=== PATIENT | female | born 1950 | race Caucasian/White ===

== ENCOUNTER 2018-06-13 11:55 | Outpatient (CLI) | payer OTHER ==
[2015-09-04 05:33] VITALS: BMI 31.8
--- NOTE | 2018-06-13 13:40 | DI ---
Exam: Two views of the right hip. Comparison: None available. Reason for exam: Right hip pain FINDINGS: No acute fracture or malalignment. The femoral head articulates with the acetabulum. The imaged osseous structures appear diffusely demineralized.
== END 2018-06-13 11:56 | disposition home or self-care (01) ==
LOC: RAD 11:55
PROVIDERS: ATTEND Family Medicine
DX: M25.551 Pain in right hip (principal)

== ENCOUNTER 2019-04-15 07:13 | Emergency (ER) | payer OTHER ==
[2019-04-15 07:20] VITALS: BP 169/107; TEMP 99
[2019-04-15 07:31] VITALS: BMI 35.1
--- NOTE | 2019-04-15 08:09 | DI ---
EXAM: RIGHT ANKLE THREE VIEWS HISTORY: Pain after injury FINDINGS: No comparison. Postop changes include an intramedullary lupe of the distal fibula and two screws over the medial malleolus. There is mild deformity of the distal fibula consistent with old h ealed injury. No acute fracture or joint dislocation is seen. Soft tissue edema is noted. No joint effusion. Bony spurring of the posterior calcaneus. Bones appear demineralized. IMPRESSION: 1. No acute fracture or dislocation.
--- NOTE | 2019-04-15 08:10 | DI ---
EXAM: Right wrist three-view HISTORY: Fall COMPARISON: None FINDINGS: No fracture or dislocation. Mild scattered osteoarthritic change of the wrist with modera te to severe osteoarthritis first CMC joint. No focal soft tissue abnormality. IMPERSSION: 1. No fracture or dislocation. 2. Osteoarthritis
--- NOTE | 2019-04-15 08:12 | DI ---
EXAM: Right hand three-view HISTORY: Fall COMPARISON: None FINDINGS: No fracture or dislocation. Mild to moderate scattered osteophytic change throughout the hand with moderate to severe osteoarthritis first CMC joint. No focal soft tissue abnormality. IMPERSSION: 1. No fracture or dislocation. 2. Osteoarthritis
--- NOTE | 2019-04-15 08:13 | DI ---
EXAM: RIGHT FOOT, 3 VIEWS HISTORY: Pain after injury FINDINGS: Bones are demineralized. Distal leg bone findings as previously described on same day ank le series report. No displaced fracture or joint dislocation is seen. Moderate arthropathy of the i nterphalangeal joints. Bony spurring of the posterior calcaneus IMPRESSION: 1. Demineralization and arthropathy. No fracture or dislocation identified.
--- NOTE | 2019-04-15 08:33 | CT ---
EXAM: CT BRAIN HISTORY: Fall, hit head. Swelling. TECHNIQUE: CT brain without intravenous contrast. 5-mm axial sections with Reformations. COMPARISON: None FINDINGS: Brain is unremarkable without evidence of hemorrhage or large vessel distribution recent ischemic in farction. There is no suggestion of acute hydrocephalus or subdural fluid collection. No mass or ma ss effect. No skull fracture is seen. Mastoid processes are clear. Visualized paranasal sinuses are clear. Th ere is a scalp hematoma on the right measuring about 1.3 x 2 cm. IMPRESSION: 1. No acute intracranial process or injury. No skull fracture. 2. Right sided scalp hematoma.
--- NOTE | 2019-04-15 08:38 | ED.PDOC ---
General ED Provider: Dr. BETZAIDA LEW Chief Complaint: Fall Stated Complaint: fall Time Seen by Physician: 07:20 (seen with nurse present at all time (MAYITO)) Mode of Arrival: Walk-In Information Source: Patient Exam Limitations: No limitations Primary Care Provider: RUDDY THOMPSON Nursing and Triage Documentation Reviewed and Agree: Yes Does patient meet sepsis criteria?: No System Inflammatory Response Syndrome: Not Applicable Sepsis Protocol: For patient's 13 years and over: Temp is 96.8 and below OR 101 and greater Pulse >90 BPM Resp >20/minute Acutely Altered Mental Status Are patient's symptoms suggestive of a new infection, such as: -Pneumonia -Skin, Soft Tissue -Endocarditis -UTI -Bone, Joint Infection -Implantable Device -Acute Abdominal Infection -Wound Infection -Meningitis -Blood Stream Catheter Infection -Unknown Trauma/Injury Complaint Exam - Trauma Complaint/Exam Location of Pain or Injury: Reports: Head, Neck, RUE (HAND/ WRIST), RLE (ANKLE/ FOOT) Mechanism of Injury: Reports: Fall Symptoms Are: Still present Timing of Treatment: Delayed Initial Severity: Mild Current Severity: Mild Character: Reports: Aching Aggravating: Reports: None Alleviating: Reports: None Associated Signs and Symptoms: Denies: LOC, Confusion, Memory loss, Lethargy, Vomiting, Bleeding, Bruising, Swelling, Extremity disuse, Painful respiration, Hoarseness, Dysphagia, Hemoptysis, Significant blood loss : No Penetrating Injury Risk Factors: Reports: None Nexus Low Risk Criteria: No post-midline CS tender, No evidence of intoxicat., No Altered LOC, No focal neuro deficit, No distracting injuries Glascow Coma Scale (see protocol): 15 Trauma Findings: Absent: [place] eyes, Hemotympanum, Nasal deformity, Dental tenderness, Dental injury, Dental malocclusion, SubQ Air, Crepitus, Airway obstructed, Trachea displaced, Labored respirations, Muffled heart sounds, Weak pulses, Absent pulses, Abdominal distention, Pelvic tenderness Skin Findings: Present: Normal findings Differential Diagnoses: Fracture, Hematoma, Sprain, Strain Review of Systems - Review Of Systems Constitutional: Reports: No symptoms Eyes: Reports: No symptoms Ears, Nose, Mouth, Throat: Reports: No symptoms Respiratory: Reports: No symptoms Cardiac: Reports: No symptoms GI: Reports: No symptoms : Reports: No symptoms Musculoskeletal: Reports: Joint pain (HAND AND WRIST) Skin: Reports: No symptoms Neurological: Reports: Headache Endocrine: Reports: No symptoms Hematologic/Lymphatic: Reports: No symptoms All Other Systems: Reviewed and Negative Past Medical History - Past Medical History Previously Healthy: No Endocrine: Reports: None Cardiovascular: Reports: None Respiratory: Reports: None Hematological: Reports: None Gastrointestinal: Reports: None Genitourinary: Reports: None Neuro/Psych: Reports: None Musculoskeletal: Reports: None Cancer: Reports: None Last Menstrual Period: NA - Surgical History General Surgical History: Reports: Hysterectomy, Orthopedic (right ankle surgery ) - Family History Family History: Reports: None - Social History Smoking Status: Never smoker Hx Substance Use: No Alcohol Screening: None - Immunizations Tetanus Shot up to Date: No Physical Exam - Physical Exam Appearance: Well-appearing Ill-appearing: Mild Eyes: ASIYA, EOMI, Conjunctiva clear ENT: Ears normal, Nose normal, Oropharynx normal Respiratory: Breath sounds diminished, Crackles, Rhonchi Cardiovascular: RRR, Pulses normal, No rub, No murmur GI/: Soft, Nontender, No masses, Bowel sounds normal, No Organomegaly Musculoskeletal: Normal strength, ROM intact, No edema, No calf tenderness Skin: Warm, Dry, Normal color Neurological: Sensation intact, Motor intact, Reflexes intact, Cranial nerves intact, Alert, Oriented Psychiatric: Affect appropriate, Mood appropriate Critical Care Note - Critical Care Note Total Time (mins): 0 Course - Course Orders, Labs, Meds: Orders Category Date Time Status ANKLE, RIGHT MIN 3 VIEWS Stat RADS 04/15/19 07:[address] CERVICAL SPINE W/O CONTRAST Stat RADS 04/15/19 07:[address] HEAD W/O CONTRAST Stat RADS 04/15/19 07:31 Completed FOOT, RIGHT 3 VIEWS Stat RADS 04/15/19 07:33 Completed HAND, RIGHT 3 VIEWS Stat RADS 04/15/19 07:32 Completed WRIST, RIGHT 3 VIEWS Stat RADS 04/15/19 07:32 Completed Vital Signs: Temp Pulse Resp BP Pulse Ox 04/15/19 07:15 99.0 F 72 20 169/107 H 94 L Departure - Departure Time of Disposition: 08:49 Disposition: HOME SELF-CARE Discharge Problem: Hematoma of scalp Qualifiers: Encounter type: initial encounter Qualified Code(s): S00.03XA - Contusion of scalp, initial encounter Sprain of hand, right Qualifiers: Encounter type: initial encounter Qualified Code(s): S63.91XA - Sprain of unspecified part of right wrist and hand, initial encounter Right wrist sprain Qualifiers: Encounter type: initial encounter Qualified Code(s): S63.501A - Unspecified sprain of right wrist, initial encounter Instructions: Head Injury (ED), Hematoma (ED), Hand Sprain (ED), Foot Sprain ( ED) Condition: Good Pt referred to PMD for follow-up: Yes IPMP verified?: No Additional Instructions: Please call your Family Physician as soon as possible to schedule a follow-up appointment. Allergies/Adverse Reactions: Allergies caffeine Allergy (Intermediate, Verified 09/04/15 06:05) heart races Home Medications: Ambulatory Orders Clonazepam 0.5 mg PO BEDTIME 04/15/19 Metoprolol Tartrate 50 mg PO BID 04/15/19 Pravastatin Sodium [Pravachol] 40 mg PO BEDTIME 04/15/19 Triamterene/Hydrochlorothiazid [Triamterene-Hctz 37.5-25 mg Cp] 1 each PO EVERY OTHER DAY 04/15/19 Warfarin Sodium [Coumadin] 5 mg PO DAILY 04/15/19
--- NOTE | 2019-04-15 09:13 | CT ---
EXAM: CT cervical spine. HISTORY: Neck injury. TECHNIQUE: CT cervical spine without contrast. Detailed axial sections. Coronal and sagittal re-fo rmations. COMPARISON: None FINDINGS: No fracture is identified. Vertebral body heights are maintained. There is no spondylolisthesis. F acet joints are covered. Lateral masses of C1 and C2 are normally aligned and the odontoid process is intact. Diffuse mild to moderate degenerative changes of the spine most apparent at C5/C6 where t here is mild central canal stenosis and bilateral neural foraminal narrowing. No traumatic central c anal stenosis or paraspinal hematoma. IMPRESSION: 1. No acute fracture or subluxation.
== END 2019-04-15 09:12 | disposition home or self-care (01) ==
LOC: ED 07:13
DX: S00.03XA Contusion of scalp, initial encounter (principal); S63.91XA Sprain of unspecified part of right wrist and hand, initial encounter; W01.0XXA Fall on same level from slipping, tripping and stumbling without subsequent striking against object, initial encounter
CPT/HCPCS: 99283

== ENCOUNTER 2019-04-17 02:54 | Emergency (ER) ==
[2019-04-17 03:02] VITALS: TEMP 97.2
[2019-04-17 03:14] VITALS: BP 176/110; BMI 35.0
[2019-04-17] MEDS ORDERED: NITROSTAT SL ONE (03:16)
[2019-04-17] MEDS ORDERED: SODIUM CHLORIDE 1,000 ML IV STA (03:21)
[2019-04-17] MEDS ORDERED: ZOFRAN 4 MG/2 ML IVP STA (03:21)
[2019-04-17] MEDS ORDERED: MORPHINE 4 MG/ML SYRINGE IVP STA (03:21)
[2019-04-17] MEDS ORDERED: NITROSTAT SL STA (03:23)
--- NOTE | 2019-04-17 03:26 | ED.PDOC ---
General ED Provider: Dr. YUE HUTCHISON Chief Complaint: Chest Pain Stated Complaint: woke up 45 min ago with chest pain on the substernal area radiating to the Jaw and left arm. Has a history of Atrial fibrillation on anticoagulation. Time Seen by Physician: 03:10 Mode of Arrival: Walk-In Information Source: Patient, Family Exam Limitations: No limitations Primary Care Provider: RUDDY THOMPSON Nursing and Triage Documentation Reviewed and Agree: Yes Does patient meet sepsis criteria?: No System Inflammatory Response Syndrome: Not Applicable Sepsis Protocol: For patient's 13 years and over: Temp is 96.8 and below OR 101 and greater Pulse >90 BPM Resp >20/minute Acutely Altered Mental Status Are patient's symptoms suggestive of a new infection, such as: -Pneumonia -Skin, Soft Tissue -Endocarditis -UTI -Bone, Joint Infection -Implantable Device -Acute Abdominal Infection -Wound Infection -Meningitis -Blood Stream Catheter Infection -Unknown Cardiovascular Complaint Exam - Chest Pain Complaint/Exam Onset: Sudden Duration: 45 min Symptoms Are: Still present Timing: Constant Initial Severity: Severe Current Severity: Severe Location: Reports: Midsternal Pain Radiates: Reports: Left arm, Jaw Character: Reports: Heaviness, Pressure Aggravating: Reports: None Alleviating: Reports: None Associated Signs and Symptoms: Denies: Diaphoresis, Nausea, Vomiting, Fever, Palpitations, Cough, Hemoptysis, Back pain, Abdominal pain, Dizziness, Short of air, Calf pain, Calf swelling AMI/ACS Risk Factors: Reports: Hypertension, Dyslipidemia. Denies: Diabetes, Smoking TAD Risk Factors: Reports: Hypertension. Denies: Smoking, CHF, Pulmonary Embolism Risk Factors: Reports: None Prior Care for this Complaint: No Recent Stress Test: No Recent Echo/LV Function: No JVD Present: No Subcutaneous Emphysema Present: No If Risk Factors for AMI/ACS Consider: EKG, Cardiac Enzymes, Serial Studies, Oxygen, Aspirin Differential Diagnoses: Acute MS, Unstable Angina Review of Systems - Review Of Systems Constitutional: Reports: Loss of appetite Respiratory: Reports: No symptoms Cardiac: Reports: Chest pain GI: Reports: No symptoms : Reports: No symptoms Musculoskeletal: Reports: No symptoms Skin: Reports: No symptoms Neurological: Reports: Anxiety Endocrine: Reports: No symptoms Hematologic/Lymphatic: Reports: No symptoms All Other Systems: Reviewed and Negative Past Medical History - Past Medical History Previously Healthy: No Endocrine: Reports: None, Dyslipidemia Cardiovascular: Reports: Hypertension, A-Fib Respiratory: Reports: None Hematological: Reports: None Gastrointestinal: Reports: None Genitourinary: Reports: None Neuro/Psych: Reports: None Musculoskeletal: Reports: None Cancer: Reports: None Last Menstrual Period: hyst 40 yrs ago - Surgical History General Surgical History: Reports: Hysterectomy, Orthopedic (right ankle surgery ) - Family History Family History: Reports: None - Social History Smoking Status: Never smoker Hx Substance Use: No Alcohol Screening: None - Immunizations Tetanus Shot up to Date: Yes Physical Exam - Physical Exam Appearance: Ill-appearing Ill-appearing: Moderate Pain Distress: Severe Neck: Supple Respiratory: Airway patent, Breath sounds clear, Breath sounds equal, Respirations nonlabored Cardiovascular: RRR, Pulses normal, No rub, No murmur Musculoskeletal: Normal strength, ROM intact, No edema, No calf tenderness Skin: Warm Neurological: Alert, Oriented Psychiatric: Anxious Interpretation - Radiology Interpretation Radiology Interpretation By: ED Physician Radiology Results: Negative Exam Interpreted: Portable CXR - Validation Leader Time of Validation Leader Interpretation: 03:29 Rate: Normal Rhythm: Other (Atrial Fibrillation) Ectopy: None - EKG Interpretation Time of EKG #1: 03:08 Rate: Normal Rhythm: Other (Atrial Fib) Ectopy: None Hart: NL ST Segment: Other (3mm elevation in 2,3, AVF) Interpretation: Acute inferior MS Re-Evaluation - Re-Evaluation Time of Re-Evaluation: 03:34 Status: Improved (only slightly ) Vital Signs Stable: Yes (137/92, 93 % on 2 L, P 86, Resp 18 ) Pain Level: 7/10 Physician Notification - Case Discussed Physician Notified: Dr Ramirez Time of Notification: 03:25 (Acute MS ) Critical Care Note - Critical Care Note Total Time (mins): 40 Course - Course Hematology/Chemistry: 04/17/19 03:25 04/17/19 03:25 Orders, Labs, Meds: Lab Review 04/17/19 04/17/19 04/17/19 03:25 03:25 03:25 WBC 8.47 RBC 4.20 Hgb 13.1 Hct 40.3 MCV 96.0 MCH 31.2 H MCHC 32.5 RDW Coeff of Helen 13.6 Plt Count 257 Immature Gran % (Auto) 0.6 Neut % (Auto) 59.5 Lymph % (Auto) 28.8 Thomas % (Auto) 6.8 Eos % (Auto) 3.5 Baso % (Auto) 0.8 Immature Gran # (Auto) 0.1 Neut # (Auto) 5.0 Lymph # (Auto) 2.4 Thomas # (Auto) 0.6 Eos # (Auto) 0.3 Baso # (Auto) 0.1 PT 29.7 H INR 3.07 Sodium 142.4 Potassium 3.00 L Chloride 104.9 Carbon Dioxide 28.4 Anion Gap 12.10 BUN 26.9 H Creatinine 0.71 Estimated GFR (MDRD) 82.00 BUN/Creatinine Ratio 37.88 Glucose 102.4 Calcium 9.32 Total Bilirubin 0.80 AST 24.4 ALT 18.2 Alkaline Phosphatase 84.0 Total Creatine Kinase 69.7 Troponin I 0.056 Total Protein 7.20 Albumin 4.31 Globulin 2.89 Albumin/Globulin Ratio 1.49 Orders Category Date Time Status EKG-(ED ONLY) Stat CARDIO 04/17/19 03:03 Ordered EKG-(ED ONLY) Stat CARDIO 04/17/19 03:21 Ordered ED APPLY O2 .ONCE EMERGENCY 04/17/19 03:21 Active ED IV/MEDIPORT/POWERPORT .ONCE EMERGENCY 04/17/19 03:21 Active CBC W/ AUTO DIFF Stat LAB 04/17/19 03:25 Completed COMPREHENSIVE METABOLIC PANEL Stat LAB 04/17/19 03:25 Completed CREATINE KINASE Stat LAB 04/17/19 03:25 Completed PT WITH INR Stat LAB 04/17/19 03:25 Completed TROPONIN I Stat LAB 04/17/19 03:25 Completed 0.9 % Sodium Chloride [Saline Flush] MEDS 04/17/19 03:21 Discontinued 1 syr IVF PRN PRN Hydromorphone HCl [Dilaudid 1 mg/ml Syringe] MEDS 04/17/19 03:36 Discontinued 1 mg .ROUTE .STK-MED ONE Hydromorphone HCl [Dilaudid 1 mg/ml Syringe] MEDS 04/17/19 03:34 Discontinued 1 mg IVP ONCE STA Morphine Sulfate [Morphine 4 mg/ml Syringe] MEDS 04/17/19 03:21 Discontinued 4 mg IVP ONCE STA Nitroglycerin [Nitrostat] MEDS 04/17/19 03:16 Discontinued 0.4 mg SL .STK-MED ONE Ondansetron HCl/Pf [Zofran 4 mg/2 ml] MEDS 04/17/19 03:21 Discontinued 4 mg IVP ONCE STA Sodium Chloride 0.9% [Sodium Chloride] 1,000 ml MEDS 04/17/19 03:21 Discontinued IV 65 mls/hr CHEST, 1V AP ONLY Stat RADS 04/17/19 03:21 Completed Medications Discontinued Medications Generic Name Dose Route Start Last Admin Trade Name Freq PRN Reason Stop Dose Admin Hydromorphone HCl 1 mg 04/17/19 03:34 04/17/19 03:41 Dilaudid 1 Mg/Ml Syringe IVP 04/17/19 03:35 1 mg ONCE STA Administration Sodium Chloride 1,000 mls @ 65 mls/hr 04/17/19 03:21 04/17/19 03:33 Sodium Chloride IV 04/17/19 18:44 65 mls/hr .[id number] STA Administration Morphine Sulfate 4 mg 04/17/19 03:21 04/17/19 03:33 Morphine 4 Mg/Ml Syringe IVP 04/17/19 03:22 4 mg ONCE STA Administration Ondansetron HCl 4 mg 04/17/19 03:21 04/17/19 03:34 Zofran 4 Mg/2 Ml IVP 04/17/19 03:22 4 mg ONCE STA Administration Sodium Chloride 1 syr 04/17/19 03:21 Saline Flush IVF PRN PRN To flush IV Vital Signs: Temp Pulse Resp BP Pulse Ox 04/17/19 02:55 97.2 F L 91 H 20 176/110 H 97 MARCELLA Risk Score Age >/= 65: Yes >/= 3 CAD Risk Factors: Yes Known CAD (Stenosis >/= 50%): No ASA Use in Past 7 Days: Yes Severe Angina (>/= 2 episodes in 24 hours): No EKG ST Changes >/= 0.5mm: Yes MARCELLA Total Score: 4 MARCELLA Risk Score: Risk Score Odds of by 30D 0 0.1 (0.1-0.2) 1 0.3 (0.2-0.3) 2 0.4 (0.3-0.5) 3 0.7 (0.6-0.9) 4 1.2 (1.0-1.5) 5 2.2 (1.9-2.6) 6 3.0 (2.5-3.6) 7 4.8 (3.8-6.1) Departure - Departure Time of Disposition: 03:45 Disposition: TSF SHORT-TRM HOSP Discharge Problem: ST elevation myocardial infarction (STEMI) of inferior wall, initial episode of care Condition: Critical Pt referred to PMD for follow-up: No IPMP verified?: No Allergies/Adverse Reactions: Allergies caffeine Allergy (Intermediate, Verified 09/04/15 06:05) heart races Home Medications: Ambulatory Orders Clonazepam 0.5 mg PO BEDTIME 04/15/19 Metoprolol Tartrate 50 mg PO BID 04/15/19 Pravastatin Sodium [Pravachol] 40 mg PO BEDTIME 04/15/19 Triamterene/Hydrochlorothiazid [Triamterene-Hctz 37.5-25 mg Cp] 1 each PO EVERY OTHER DAY 04/15/19 Warfarin Sodium [Coumadin] 5 mg PO DAILY 04/15/19
[2019-04-17] MEDS ORDERED: NITROSTAT SL PRN (03:29)
[2019-04-17] MEDS ORDERED: DILAUDID 1 MG/ML SYRINGE IVP STA (03:34)
[2019-04-17] MEDS ORDERED: DILAUDID 1 MG/ML SYRINGE ONE (03:36)
--- NOTE | 2019-04-17 03:48 | DI ---
EXAM: Chest, single view, 04/17/2019 HISTORY: Chest pain COMPARISON: None. FINDINGS / IMPRESSION: Cardiomediastinal contours appear at the upper limits of normal. Basilar int erstitial prominence may relate to atelectasis. There is no focal pulmonary consolidation. No defin itive pleural effusion. No evidence of pneumothorax.
== END 2019-04-17 03:45 | disposition short-term general hospital (02) ==
LOC: ED 02:54
DX: I21.19 ST elevation (STEMI) myocardial infarction involving other coronary artery of inferior wall (principal); I48.91 Unspecified atrial fibrillation; I10 Essential (primary) hypertension; E78.5 Hyperlipidemia, unspecified; Z79.01 Long term (current) use of anticoagulants; Z79.899 Other long term (current) drug therapy
CPT/HCPCS: 36415; 80053; 82550; 84484; 85025; 85610; 93005; 93010; 96361; 96374; 96375; 99285

== ENCOUNTER 2019-04-17 03:42 | Outpatient (CLI) | payer OTHER ==
[2019-04-17 03:14] VITALS: BMI 35.0
== END 2019-04-17 03:59 | disposition critical access hospital (66) ==
LOC: AMBL 03:42
PROVIDERS: ATTEND Internal Medicine Geriatric Medicine
DX: I21.19 ST elevation (STEMI) myocardial infarction involving other coronary artery of inferior wall (principal)

== ENCOUNTER 2019-07-02 11:00 | Outpatient (RCR) | payer OTHER ==
[2019-04-29 10:46] VITALS: BMI 31.9
--- NOTE | 2019-06-19 15:26 | RS.OPPTDN ---
Subjective Date of Note: 06/19/19 Visit #: 7 Number of visits approved by Insurance: 8-10 Date of Evaluation: 06/05/19 Payer Source: MEDICARE Treatment Diagnosis: Right hip, knee, and ankle pain, History of fall Current Subjective/complaints:: Patient says she is able to take a longer step with walking now and she reports reduced pain to the R hip, knee, and ankle. - Heat/Cryotherapy Treatment: Hot Pack (over the R hip and knee and around the ankle in sidelying x 20 mins) Interventions - Exercise/Activities/Manual Therapy Exercises/Activities: Patient assisted with stretches to the R LE including SKTC , Hamstring, Piriformis, lower trunk rotation, figure 4 x 3 ea. AAROM of right knee flex and extension, full range. She performs: hooklying ball squeezes, hooklying hip abd with green tband, SAQ increased to 2#, QS, SLR (3 sets of 10 reps), DF/PF/IV with green tband, isometrics into eversion, ham curls with green tband. All 2 x 10 reps. LAQ and hip flexion with 1 1/2# for R LE. Standing: hip abd and ham curls with 2# x 10. No weight for active R hip march , heel raises all x 10 reps. Stationary bike forward x 3 mins, reverse x 2. Total minutes of Exercise: 35 Manual Therapy: NA HOME EXERCISE PROGRAM: mini-squat (very limited range) in standing. Pillow squeezes, QS, SLR - Charges Timed Code Treatment Minutes: 35 Total Treatment Time: 55 Procedures billed for this date of service:: hp, ex2 Assessment: Patient presents with longer R LE stride, increased gait speed since last week maintaining CHIEF ARCHITECT speed instead of CHIEF ARCHITECT slowing pace for pt. She admits improved R hip and groin pain allowing her full R knee ROM actively and ability to lift her leg up into her SUV and on our plinth tables with no difficulty. She also admits no trouble with stepping up/down stairs or curb. Patient Education: Body/Joint mechanics, Home Exercise Program Patient demonstrates compliance with HEP?: Yes Short Term Goals Goal #1: Patient independent with HEP. Goal to be met by: 06/19/19 Progress towards Goal:: Progressing Goal #2: Right hip AROM WFL's with minimal pain. Goal to be met by: 06/19/19 Progress towards Goal:: Met Goal #3: Right knee active flexion to 115 degrees with minimal pain. Goal to be met by: 06/19/19 Progress towards Goal:: Met Goal #4: Right ankle DF to 10 degrees. Goal to be met by: 06/19/19 Progress towards Goal:: Progressing Comments:: 5 degrees Plumbing Contractor Goals Goal #1: Pt to amb. community distances with minimal pain or gait deviation. Goal to be met by: 07/20/19 Progress towards goal: Progressing Goal #2: Patient able to sleep without interruption from right LE pain. Goal to be met by: 07/20/19 Progress towards goal: Progressing Comments: admits only slight interruption and is less frequent Goal #3: Score on LE functional scale improved to 46/80. Goal to be met by: 07/20/19 Comments: Assess next week Goal #4: Pt to ascend/descend 3 steps with minimal difficulty. Goal to be met by: 07/20/19 Progress towards goal: Progressing Comments: Admits no difficulty Plan Dates of Plumbing Contractor Goals: 07/20/19 Expiration date of current Insurance Approval:: 07/20/19 PLAN: Continue TIW for assisted stretching and strengthening to the R LE
--- NOTE | 2019-06-23 15:53 | RS.OPPTDN ---
Subjective Date of Note: 06/23/19 Visit #: 8 Number of visits approved by Insurance: Reassess at 10 Date of Evaluation: 06/05/19 Payer Source: MEDICARE Treatment Diagnosis: Right hip, knee, and ankle pain, History of fall Current Subjective/complaints:: Patient says that she is now able to sleep in her bed instead of her recliner. Reports she is also able to use the steps from her garage to home without holding onto the railing. Prior to this last week she was using both hands on the rail. She says her pain is very minimal to the hip, but no longer has the "deep joint ache." Says her R leg is stronger allowing her to walk faster and with a feeling of better support. - Heat/Cryotherapy Treatment: Hot Pack (15 mins to the low back, R hip and R ankle in sidelying) Interventions - Exercise/Activities/Manual Therapy Exercises/Activities: Patient assisted with progressive stretches to the R LE including SKTC, Hamstring, Piriformis, lower trunk rotation, figure 4 x 3 ea. Stretching to R heel cords. She performs: hooklying ball squeezes, hooklying hip abd with green tband, SAQ increased to 2 1/2#, QS, SLR (3 sets of 10 reps), Bridging, green tband for single R hip flexion with knee bent 2x10. DF/PF/IV/ EV with green tband, ham curls with green tband. All 2 x 10 reps. LAQ and hip flexion with 2 1/2# for R LE. Standing: hip abd and ham curls with 2# x 10. No weight for active R hip march, heel raises all x 10 reps. Stationary bike forward x 5 mins, reverse x 2. Total minutes of Exercise: 35 Manual Therapy: NA HOME EXERCISE PROGRAM: mini-squat (very limited range) in standing. Pillow squeezes, QS, SLR - Charges Timed Code Treatment Minutes: 35 Total Treatment Time: 50 Procedures billed for this date of service:: mara, ex2 Assessment: Patient has progressed well with sleep improvement and now returning to her bed, no longer requiring use of handrail while ascending/ descending steps to/from garage, and improved stability with ambulation allowing her resume her normal speed of pace. She demo full R knee flexion and improved HS and heel cord flexibility. Patient Education: Body/Joint mechanics, Education of Plan of Care Patient demonstrates compliance with HEP?: Yes Short Term Goals Goal #1: Patient independent with HEP. Goal to be met by: 06/19/19 Progress towards Goal:: Met Goal #2: Right hip AROM WFL's with minimal pain. Goal to be met by: 06/19/19 Progress towards Goal:: Met Goal #3: Right knee active flexion to 115 degrees with minimal pain. Goal to be met by: 06/19/19 Progress towards Goal:: Met Goal #4: Right ankle DF to 10 degrees. Goal to be met by: 06/19/19 Progress towards Goal:: Progressing Comments:: 8 degrees measured today Nursing Home Goals Goal #1: Pt to amb. community distances with minimal pain or gait deviation. Goal to be met by: 07/20/19 Progress towards goal: Progressing Goal #2: Patient able to sleep without interruption from right LE pain. Goal to be met by: 07/20/19 Progress towards goal: Progressing Goal #3: Score on LE functional scale improved to 46/80. Goal to be met by: 07/20/19 Comments: Assess this week Goal #4: Pt to ascend/descend 3 steps with minimal difficulty. Goal to be met by: 07/20/19 Progress towards goal: Progressing Plan Dates of Nursing Home Goals: 07/20/19 Expiration date of current Insurance Approval:: 07/20/19 PLAN: Patient to continue x 2 more sessions and reassess this week.
--- NOTE | 2019-06-24 14:45 | RS.OPPTDN ---
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 She will be returning to her MD today for follow up. - Heat/Cryotherapy Treatment: Hot Pack (over the R low back/hip/ankle in sidelying x 15 mins) Interventions - Exercise/Activities/Manual Therapy Exercises/Activities: Patient assisted with progressive stretches to the R LE including SKTC, Hamstring, Piriformis, lower trunk rotation, figure 4 x 3 ea. Stretching to R heel cords. She performs: hooklying ball squeezes, hooklying hip abd with green tband, SAQ 2 1/2#, QS, SLR (3 sets of 10 reps), Bridging, green tband for single R hip flexion with knee bent 2x10. DF/PF/IV/EV with green tband, ham curls with green tband. All 3 x 10 reps. LAQ and hip flexion with 2 1/2# for R LE. Total minutes of Exercise: 29 Manual Therapy: NA HOME EXERCISE PROGRAM: mini-squat (very limited range) in standing. Pillow squeezes, QS, SLR - Charges Timed Code Treatment Minutes: 29 Total Treatment Time: 44 Procedures billed for this date of service:: hp, ex2 Assessment: Patient amb with increased WBing on the R LE and continues with consistent pace. Good HS and piriformis extensibility with no longer experiencing R hip soreness during stretches and able to allow full range with R SKTC. Patient Education: Body/Joint mechanics, Home Exercise Program Patient demonstrates compliance with HEP?: Yes Short Term Goals Goal #1: Patient independent with HEP. Goal to be met by: 06/19/19 Progress towards Goal:: Met Goal #2: Right hip AROM WFL's with minimal pain. Goal to be met by: 06/19/19 Progress towards Goal:: Met Goal #3: Right knee active flexion to 115 degrees with minimal pain. Goal to be met by: 06/19/19 Progress towards Goal:: Met Goal #4: Right ankle DF to 10 degrees. Goal to be met by: 06/19/19 Progress towards Goal:: Progressing Comments:: 8 degrees General Inspector Goals Goal #1: Pt to amb. community distances with minimal pain or gait deviation. Goal to be met by: 07/20/19 Progress towards goal: Progressing Goal #2: Patient able to sleep without interruption from right LE pain. Goal to be met by: 07/20/19 Progress towards goal: Progressing Goal #3: Score on LE functional scale improved to 46/80. Goal to be met by: 07/20/19 Comments: Assess next session Goal #4: Pt to ascend/descend 3 steps with minimal difficulty. Goal to be met by: 07/20/19 Progress towards goal: Progressing Plan Dates of [facility] Goals: 07/20/19 Expiration date of current Insurance Approval:: 07/20/19 PLAN: Patient continue once more this week. Complete reassessment and D/c if goals are met.
--- NOTE | 2019-06-26 15:49 | RS.OPPTDN ---
Subjective Date of Note: 06/26/19 Visit #: 10 Number of visits approved by Insurance: 12 Date of Evaluation: 06/05/19 Payer Source: MEDICARE Treatment Diagnosis: Right hip, knee, and ankle pain, History of fall Current Subjective/complaints:: Patient says she stroner with therapy in the past 1-2 weeks and is no longer fearful of falling. States that she is easily going up/down 6 steps at [employer] without handrail and getting in/out SUV without any trouble. Reports lifting her R leg on her own and doesn't even have to think about it. States pain is very little to none to the R hip, knee, and ankle. - Heat/Cryotherapy Treatment: Hot Pack (over the R hip and ankle x 12 mins in sidelying) Interventions - Exercise/Activities/Manual Therapy Exercises/Activities: Patient focusing on strengthening: R LE--QS, SAQ 3#, SLR , Bridging, Ball squeezes for hip add, green tband for hooklying hip abd, ham curls, DF/IV/EV/PF, single R LE lift all 2x12 reps. Patient sits for LAQ 3#, hip flexion 3# x 15 reps. Stationary bike x 7 mins for/retro. Began leg presses 30# bilaterally 2x15 reps. Assisted with LE Functional Assessment. Total minutes of Exercise: 36 Manual Therapy: NA HOME EXERCISE PROGRAM: mini-squat (very limited range) in standing. Pillow squeezes, QS, SLR - Charges Timed Code Treatment Minutes: 36 Total Treatment Time: 51 Procedures billed for this date of service:: hp, ex2 Assessment: Patient scored 66/80 or 18% impairment on LE Score. She demo norm flexibility to hamstrings and piriformis compared to L. R knee flexion is WNL and comparison to the L. She has limitation in standing back up from squatting position so she would benefit from continuing her 2 remaining sessions to build quad strength in order to stand from squatted position. Patient Education: Body/Joint mechanics, Home Exercise Program, Education of Plan of Care Patient demonstrates compliance with HEP?: Yes Short Term Goals Goal #1: Patient independent with HEP. Goal to be met by: 06/19/19 Progress towards Goal:: Met Goal #2: Right hip AROM WFL's with minimal pain. Goal to be met by: 06/19/19 Progress towards Goal:: Met Goal #3: Right knee active flexion to 115 degrees with minimal pain. Goal to be met by: 06/19/19 Progress towards Goal:: Met Goal #4: Right ankle DF to 10 degrees. Goal to be met by: 06/19/19 Progress towards Goal:: Met Hand Tier Goals Goal #1: Pt to amb. community distances with minimal pain or gait deviation. Goal to be met by: 07/20/19 Progress towards goal: Met Goal #2: Patient able to sleep without interruption from right LE pain. Goal to be met by: 07/20/19 Progress towards goal: Met Goal #3: Score on LE functional scale improved to 46/80. Goal to be met by: 07/20/19 Progress towards goal: Met Comments: 66/80 Goal #4: Pt to ascend/descend 3 steps with minimal difficulty. Goal to be met by: 07/20/19 Progress towards goal: Met Plan Dates of Hand Tier Goals: 07/20/19 Expiration date of current Insurance Approval:: 07/20/19 PLAN: Continue x 2 more sessions.
--- NOTE | 2019-06-29 16:33 | RS.OPPTDN ---
Subjective Date of Note: 06/29/19 Visit #: 11 Number of visits approved by Insurance: 12 Date of Evaluation: 06/05/19 Payer Source: MEDICARE Treatment Diagnosis: Right hip, knee, and ankle pain, History of fall Current Subjective/complaints:: Patient states she has no pain right now, but is having difficulty with breathing related to the humidity. Reports that she has had no pain due to beginning increased strengthening therex last session. - Heat/Cryotherapy Treatment: Hot Pack (12 mins over the R hip in sidelying) Interventions - Exercise/Activities/Manual Therapy Exercises/Activities: Patient focusing on strengthening: R LE--QS, SAQ 3#, SLR , Bridging, Ball squeezes for hip add, green tband for hooklying hip abd and single R hip flexion, ham curls, DF/IV/EV/PF, single R LE lift all 2x12 reps. Patient sits for LAQ 3#, hip flexion 3# x 15 reps. Stationary bike x 7 mins for /retro. Continued with leg presses 30# bilaterally 2x15 reps and then advancing to 45# 2x10. Total minutes of Exercise: 32 Manual Therapy: NA HOME EXERCISE PROGRAM: mini-squat (very limited range) in standing. Pillow squeezes, QS, SLR - Charges Timed Code Treatment Minutes: 32 Total Treatment Time: 44 Procedures billed for this date of service:: radha terry Assessment: Patient presenting without pain to the R hip, knee, or ankle. ROM to the R DF to 10 degrees meeting her goal. Continued improvement in strength grossly for the R LE allowing for improved gait pattern. She did experience increased breathing difficulty related to heat warnings/humidity in which we did take longer breaks between exercises. She admits her O2 sats prior to leaving her home was 100% by self check. Patient Education: Education of Plan of Care Patient demonstrates compliance with HEP?: Yes Short Term Goals Goal #1: Patient independent with HEP. Goal to be met by: 06/19/19 Progress towards Goal:: Met Goal #2: Right hip AROM WFL's with minimal pain. Goal to be met by: 06/19/19 Progress towards Goal:: Met Goal #3: Right knee active flexion to 115 degrees with minimal pain. Goal to be met by: 06/19/19 Progress towards Goal:: Met Goal #4: Right ankle DF to 10 degrees. Goal to be met by: 06/19/19 Progress towards Goal:: Met Assisted Goals Goal #1: Pt to amb. community distances with minimal pain or gait deviation. Goal to be met by: 07/20/19 Progress towards goal: Met Goal #2: Patient able to sleep without interruption from right LE pain. Goal to be met by: 07/20/19 Progress towards goal: Met Goal #3: Score on LE functional scale improved to 46/80. Goal to be met by: 07/20/19 Progress towards goal: Met Goal #4: Pt to ascend/descend 3 steps with minimal difficulty. Goal to be met by: 07/20/19 Progress towards goal: Met Plan Dates of Regional Account Manager Goals: 07/20/19 Expiration date of current Insurance Approval:: 07/20/19 PLAN: Continue 1 more session per order to progress strengthening and assess squatting ability.
--- NOTE | 2019-06-30 15:51 | RS.PTSUM ---
Progress Note/Summary Date of Note: 06/26/19 Date of Evaluation: 06/05/19 Number of Visits: 10 Reporting Period for this Progress Note: 06/05/19 through 06/26/19 Current Complaints/Gains: Mrs. Angel states she no longer needs to use a hand rail to ascend 6 steps at [employer]. States she is walking faster and can lift her right LE up into the SUV without difficulty. She still has difficulty with squatting, because it is difficult for her to get back up once she gets down into squat position. Objective Measurements/Presentation: Bilateral LE Hamstring and Pirformis flexibilty is now equal. She is able to perform active right hip flexion without use of UE's, and she is able to perform against moderate resistive theraband. Score on LE functional index scale improved to 66/80=18% impairment. Patient ambulates with more symmetrical gait pattern since initial visit. She demonstrates better flexion at the right hip and knee during swing phase. G Codes: NA Source of G Code Score: NA - Short Term Goals Goal #1: Patient independent with HEP. Goal to be met by: 06/19/19 Progress towards Goal:: Met Goal #2: Right hip AROM WFL's without pain Goal to be met by: 07/05/19 (Revised 06/26/19) Goal #3: Right knee active flexion to 115 degrees without pain. Goal to be met by: 07/05/19 (Revised 06/26/19) Goal #4: Right ankle DF to 10 degrees. Goal to be met by: 06/19/19 Progress towards Goal:: Met - Alf Goals Goal #1: Pt to amb. community distances without pain or gait deviation. Goal to be met by: 07/20/19 (Revised 06/26/19) Goal #2: Pt knows HEP and to continue ex's to maintain functional level at D/C. Goal to be met by: 07/20/19 (New goal 06/26/19) Goal #3: Score on LE functional scale improved to 46/80. Goal to be met by: 07/20/19 Progress towards goal: Met Goal #4: Pt to ascend/descend 3 steps with minimal difficulty. Goal to be met by: 07/20/19 Progress towards goal: Met - Assessment Assessment of Improvement/Progress: Ms. Angel has made great progress towards all goals. She reports increased ease with ambulation and asecending stairs. She has gained increased right LE AROM and has shown great improvement in her LE functional outcome measure. She demosntrates potential to benefit from 1-2 more visits for progressed strengthening and instruction for home program summary. - Plan Plan: Continue Plan of Care Frequency: 2 more sessions Duration: 1 week Dates of Alf Goals: 07/20/19 Expiration date of current Insurance Approval:: NA
--- NOTE | 2019-07-02 16:05 | RS.OPPTDN ---
Subjective Date of Note: 07/02/19 Visit #: 12 Number of visits approved by Insurance: 12 Date of Evaluation: 06/05/19 Payer Source: MEDICARE Treatment Diagnosis: Right hip, knee, and ankle pain, History of fall Current Subjective/complaints:: Patient describes no pain to R hip, knee, or ankle. However, she c/o R sided chest pain and later describes it as indigestion and not heart related. Reports she has frequent fluctuation of BP and high pulse rate and not to be alarmed because she is not. She says that she is stronger and working on HEP often. - Heat/Cryotherapy Treatment: Hot Pack (low back and over the R hip x 12 mins in sidelying) Interventions - Exercise/Activities/Manual Therapy Exercises/Activities: Patient focusing on strengthening: R LE--QS, SAQ 4#, SLR , Bridging, Ball squeezes for hip add, blue tband for hooklying hip abd and single R hip flexion, ham curls, DF/IV/EV/PF, single R LE lift all 2x12 reps. Patient sits for LAQ 3#, hip flexion 3# x 15 reps. No further therex due to final visit and spending time on HEP and discussing progress/answering questions. Total minutes of Exercise: 26 Manual Therapy: NA HOME EXERCISE PROGRAM: mini-squat (very limited range) in standing. Pillow squeezes, QS, SLR - Objective Findings Observations,measurements,etc.: BP taken often to the L UE in sitting once she gave c/o chest pain (later admitting wasn't "pain") and then during and after therex. Initially, BP was 136/112, then reduced to 98/36 . Taken in the R UE in sitting after therex was 96/62. Patient notes hx of this fluctuation and has no other c/o's. She admits to being well and no attention is needed. - Charges Timed Code Treatment Minutes: 26 Total Treatment Time: 48 Procedures billed for this date of service:: mara, ex2 Assessment: Patient has progressed well with pain and strength to the R hip, knee, and ankle. She has advanced with all resisted exercises demo increased R LE stride and no painful gait. She admits to improved functional activities like getting in/out tub and SUV. Patient Education: Body/Joint mechanics, Home Exercise Program, Education of Plan of Care Patient demonstrates compliance with HEP?: Yes Short Term Goals Goal #1: Patient independent with HEP. Goal to be met by: 06/19/19 Progress towards Goal:: Met Goal #2: Right hip AROM WFL's without pain Goal to be met by: 07/05/19 (Revised 06/26/19) Progress towards Goal:: Met Goal #3: Right knee active flexion to 115 degrees without pain. Goal to be met by: 07/05/19 (Revised 06/26/19) Progress towards Goal:: Met Comments:: full to 123 degrees Goal #4: Right ankle DF to 10 degrees. Goal to be met by: 06/19/19 Progress towards Goal:: Met Jail Goals Goal #1: Pt to amb. community distances without pain or gait deviation. Goal to be met by: 07/20/19 (Revised 06/26/19) Progress towards goal: Met Goal #2: Pt knows HEP and to continue ex's to maintain functional level at D/C. Goal to be met by: 07/20/19 (New goal 06/26/19) Progress towards goal: Met Goal #3: Score on LE functional scale improved to 46/80. Goal to be met by: 07/20/19 Progress towards goal: Met Goal #4: Pt to ascend/descend 3 steps with minimal difficulty. Goal to be met by: 07/20/19 Progress towards goal: Met Plan Dates of Senior [employer] Goals: 07/20/19 Expiration date of current Insurance Approval:: 07/20/19 PLAN: Discharge
== END 2019-07-18 23:59 ==
PROVIDERS: ATTEND Orthopaedic Surgery
DX: M70.61 Trochanteric bursitis, right hip (principal); M25.571 Pain in right ankle and joints of right foot; M25.561 Pain in right knee; S60.211A Contusion of right wrist, initial encounter

== ENCOUNTER 2019-07-17 12:09 | Outpatient (CLI) | payer OTHER ==
[2019-04-29 10:46] VITALS: BMI 31.9
--- NOTE | 2019-07-17 14:41 | MRI ---
EXAM: MRI right knee without contrast. HISTORY: Pain. Instability.. TECHNIQUE: Using a local extremity coil on a high field strength magnet multiplanar multisequence MR I was performed of the right knee without intravenous or intra-articular gadolinium contrast. FINDINGS: I do not have prior radiographs of the right knee available for comparison at the time of this dictation. Within the medial compartment medial meniscus is intact without discrete surfacing meniscal tear. Th e medial compartment cartilage shows some joint centered cartilage surface irregularity in attenuatio n over the medial weightbearing aspect the medial compartment. No underlying subchondral edema. Ear ly productive osteophyte formation. Within the lateral compartment lateral meniscus is intact without discrete surfacing meniscal tear. The lateral compartment cartilage congruent without underlying subchondral edema.. Within the patellofemoral compartment the patella seated. The patellar and trochlear groove cartilag e congruent without focal underlying subchondral edema. Early productive osteophyte formation.. Physiologic amount fluid right knee joint. No large osteochondral loose bodies. Intact ACL and PCL ligamentous fibers. The extensor mechanism is intact. The medial collateral ligament as well as lat eral collateral ligament complex and posterolateral corner intact. Trace posterior joint extension. Bone marrow signal intensity shows no acute fracture or stress fracture. There is a small focus of marginated signal heterogeneity within the proximal right tibial metaphysis. IMPRESSION: No discrete surfacing meniscal tear identified. Changes of early osteoarthrosis medial and patellofemoral compartment dominant. No right knee effusi on. No acute fracture/stress fracture. Intact cruciate and collateral ligaments. Small focus of marginated signal heterogeneity within the proximal right tibial metaphysis. Uncertai n etiology. Question small area of intramedullary infarct. Recommendation is obtainment and correlation with plain film radiographs of the right knee as none ar e available for comparison at the time of this dictation.
== END 2019-07-17 12:10 | disposition home or self-care (01) ==
LOC: RAD 12:09
PROVIDERS: ATTEND Nurse Practitioner Adult Health
DX: M25.561 Pain in right knee (principal); M25.361 Other instability, right knee